=== PATIENT | female | born 1970 | race Caucasian/White ===

== ENCOUNTER 2020-12-10 11:03 | Emergency (ER) | payer OTHER ==
[2020-12-10 12:10] LABS: BASOPHIL 0.7 % (0-2); EOSINOPHIL 0.5 % (0-5); HCT 47.6 % (37.0-47.0); HGB 15.7 g/dl (12.5-16.0); LYMPHOCYTE 25.9 % (15-48); MCH 29.9 pg (25.0-31.0); MCV 90.7 fL (78.0-100.0); MONOCYTE 5.3 % (0-12); MPV 11.7 fL (6.0-9.5); NEUTROPHIL 67.3 % (41-80); NRBC 0; PLT 205 K/uL (150-400); RBC 5.25 M/uL (4.20-5.40); RDW 13.8 % (11.5-14.0); WBC 10.2 K/uL (4.0-10.5)
[2020-12-10 13:22] LABS: INR 1.14 (0.9-1.2); PROTHROMBIN TIME 13.9 SECONDS (11.4-13.6); PTT 38.7 SECONDS (22.2-34.7)
[2020-12-10 13:45] LABS: ALBUMIN 3.5 g/dL (3.4-5.0); BILIRUBIN - TOTAL 0.6 mg/dL (0.2-1.0); BUN/CREAT RATIO (CALC) 14.1 RATIO; CREATININE 0.71 mg/dL (0.51-0.95); GLOBULIN (CALCULATION) 4.1 g/dL; MAGNESIUM 2.2 mg/dL (1.8-2.4); POTASSIUM 4.3 mmol/L (3.5-5.1); TOTAL PROTEIN 7.6 g/dL (6.4-8.2)
[2020-12-10 14:10] LABS: BILIRUBIN NEGATIVE (NEGATIVE); BLOOD NEGATIVE Ery/uL (NEGATIVE); CLARITY CLEAR (CLEAR); COLOR YELLOW (YELLOW); GLUCOSE (U) NORMAL (NORMAL); LEUKOCYTES TRACE Leu/uL (NEGATIVE); NITRITE NEGATIVE (NEGATIVE); PROTEIN NEGATIVE (NEGATIVE); SPECIFIC GRAVITY 1.015 (1.001-1.030); UROBILINOGEN >=8.0 mg/dL (0.2-1.0); pH 6.5 (5.0-9.0)
[2020-12-10 14:23] LABS: BACTERIA TRACE; URINARY RBC RARE
[2020-12-11 11:07] LABS: HBSAG SCREEN Negative (Negative); HEP A AB, IGM Negative (Negative); HEP B CORE AB, IGM Negative (Negative); HEP C VIRUS AB <0.1 (0.0-0.9)
[2021-05-26] MEDS ORDERED: AZOR 10-20 MG1 EACH PO (15:59)
[2021-05-26] MEDS ORDERED: LOVAZA1 GM PO (15:59)
[2021-05-29] MEDS ORDERED: PERCOCET 5-3251 EACH PO (13:53)
== END 2020-12-10 17:57 | disposition home or self-care (01) ==
LOC: FER 11:03
PROVIDERS: Emergency Medicine
DX: K75.81 Nonalcoholic steatohepatitis (NASH) (principal); K74.60 Unspecified cirrhosis of liver; F17.210 Nicotine dependence, cigarettes, uncomplicated; Z88.2 Allergy status to sulfonamides
CPT/HCPCS: 36415; 76705; 80053; 80074; 81001; 82728; 83540; 83550; 83690; 83735; 84145; 85025; 85610; 85730; 86140; 93005

== ENCOUNTER → 2021-05-29 | Day surgery (SDC) | payer OTHER ==
[~2021-05-29] VITALS: Ht 173 cm; Wt 110.2 kg
[~2021-05-29] MED LIST: AZOR 10-20 MG1 EACH PO; LOVAZA1 GM PO; PERCOCET 5-3251 EACH PO
[2021-05-29 10:11] LABS: HCG (URINE) SCREEN NEGATIVE (NEGATIVE)
[2021-05-29 10:35] LABS: INR 1.07 (0.9-1.2); PROTHROMBIN TIME 13.3 SECONDS (11.8-13.4); PTT 34.2 SECONDS (24.4-34.7)
== END | disposition home or self-care (01) ==
LOC: FAS 09:41
PROVIDERS: Anesthesiology
DX: C21.0 Malignant neoplasm of anus, unspecified (principal); I10 Essential (primary) hypertension; J30.9 Allergic rhinitis, unspecified; F17.210 Nicotine dependence, cigarettes, uncomplicated; Z79.899 Other long term (current) drug therapy; Z88.1 Allergy status to other antibiotic agents
CPT/HCPCS: 36415; 71045; 76000; 84703; 85610; 85730; C1788; J0690; J1100; J1644; J1885; J2250; J2405; J2704; J3010; J7120

== ENCOUNTER 2022-06-18 18:47 | Emergency (ER) | payer OTHER ==
[2022-06-18 19:41] LABS: BASOPHIL 0 % (0-2); EOSINOPHIL 0 % (0-5); HCT 55.5 % (37.0-47.0); HGB 17.8 g/dl (12.5-16.0); LYMPHOCYTE 9.8 % (15-48); MCH 28.8 pg (25.0-31.0); MCHC 32.1 g/dL (32.0-36.0); MCV 89.8 fL (78.0-100.0); MONOCYTE 4.6 % (0-12); MPV 10.2 fL (6.0-9.5); NEUTROPHIL 85.2 % (41-80); NRBC 0; PLT 149 K/uL (150-400); RBC 6.18 M/uL (4.20-5.40); RDW 16.5 % (11.5-14.0); WBC 8.5 K/uL (4.0-10.5)
[2022-06-18 19:46] LABS: INR 1.04 (0.9-1.2); PROTHROMBIN TIME 13.3 SECONDS (11.9-13.9); PTT 27.1 SECONDS (24.9-34.6)
[2022-06-18 19:56] LABS: ALBUMIN 4.1 g/dL (3.4-5.0); BILIRUBIN - TOTAL 0.5 mg/dL (0.2-1.0); BUN/CREAT RATIO (CALC) 23.8 RATIO; CREATININE 0.84 mg/dL (0.51-0.95); GLOBULIN (CALCULATION) 4.1 g/dL; POTASSIUM 3.8 mmol/L (3.5-5.1); TOTAL PROTEIN 8.2 g/dL (6.4-8.2)
[2022-06-18 20:19] LABS: CORONAVIRUS 2019 SARS-COV-2 NEGATIVE (NEGATIVE); INFLUENZA A NAA NEGATIVE (NEGATIVE)
== END 2022-06-18 21:55 | disposition left against medical advice (07) ==
LOC: FER 18:47
PROVIDERS: Emergency Medicine
DX: R06.02 Shortness of breath (principal); R05.9 Cough, unspecified; F17.210 Nicotine dependence, cigarettes, uncomplicated; Z53.29 Procedure and treatment not carried out because of patient's decision for other reasons; Z20.822 Contact with and (suspected) exposure to COVID-19; Z88.2 Allergy status to sulfonamides
CPT/HCPCS: 36415; 36600; 71045; 80053; 82803; 83605; 84484; 85025; 85610; 85730; 87040; 93005; U0002